=== PATIENT | male | born 1990 | race Caucasian/White ===

== ENCOUNTER 2021-05-20 23:58 | Emergency (ER) | payer OTHER ==
[~2021-05-20] VITALS: Ht 185.4 cm; Wt 113.4 kg
[2021-05-21 00:08] VITALS: BP 134/95
--- NOTE | 2021-05-21 00:18 | NUR ---
PATIENT TO TENT
--- NOTE | 2021-05-21 00:23 | NUR ---
JACKIED TO EXAMINE PATIENT IN TENT
--- NOTE | 2021-05-21 00:28 | NUR ---
CALLED FOR PATIENT ASKING ABOUT STATUS.
[2021-05-21 01:01] VITALS: BP 134/95
--- NOTE | 2021-05-21 01:01 | NUR ---
Patient discharged with v/s stable. Written and verbal after care instructions given and explained but patient left without d/c paperwork. Patient verbalized understanding. Ambulatory with steady gait. ID band removed. All questions addressed prior to discharge. Advised to follow up with PMD.
== END 2021-05-21 00:30 | disposition home or self-care (01) ==
LOC: MED 23:58
DX: U07.1 COVID-19 (principal); E11.9 Type 2 diabetes mellitus without complications
CPT/HCPCS: 99283

== ENCOUNTER 2022-04-15 21:27 | Emergency (ER) | payer OTHER ==
[~2022-04-15] VITALS: Ht 185.4 cm; Wt 112.5 kg
--- NOTE | 2022-04-15 21:29 | NUR ---
Dr. Holbrook examining at triage.
[2022-04-15 21:31] VITALS: BP 147/96
[2022-04-15] MEDS ORDERED: VALA1TAB2 PO (21:40)
[2022-04-15] MEDS ORDERED: PRED20TA6 PO (21:40)
[2022-04-15] MEDS ORDERED: [UNRECOGNIZED DRUG - CODE] OP (21:42)
[2022-04-15 21:46] VITALS: BP 147/96
--- NOTE | 2022-04-15 21:46 | NUR ---
Patient discharged with v/s stable. Written and verbal after care instructions given and explained. Patient alert, oriented and verbalized understanding of instructions. Ambulatory with steady gait. All questions addressed prior to discharge. ID band removed. Patient advised to follow up with PMD. Rx of Refresh classic eye drops, Prednisone and Valacyclovir given. Patient educated on indication of medication including possible reaction and side effects. Opportunity to ask questions provided and answered.
== END 2022-04-15 21:46 | disposition home or self-care (01) ==
LOC: MED 21:27
DX: G51.0 Bell's palsy (principal); E10.9 Type 1 diabetes mellitus without complications; Z79.4 Long term (current) use of insulin; Z79.899 Other long term (current) drug therapy
CPT/HCPCS: 99283